=== PATIENT | female | born 1945 | race Caucasian/White ===

== ENCOUNTER → 2016-05-04 12:12 | Outpatient (CLI) | payer MEDICARE ==
[2015-03-01 10:06] VITALS: BMI 23.7
[~2016-05-04 12:12] MED LIST: ALLEGRA 60 MG T60 MG PO; ASPIRIN 81 MG E81 MG PO; ASPIRIN EC81 M1 PO; CARAFATE1 G/10 ML PO; CATAPRES0.1 MG PO; CLARITIN 10 MG10 MG PO; COLACE100 MG PO; FEXOFENADINE H180 MG PO; FLAGYL250 MG PO; KEFLEX500 MG PO; KLONOPIN0.5 MG PO; LASIX80 MG PO; LEVAQUIN250 MG PO; MELATONIN 3 MG1 TAB PO; MUCINEX600 MG PO; NEPHRO-VITE RX1 TAB PO; NORCO 5/325 TAB1 TA1 PO; NORVASC10 MG PO; NORVASC5 MG PO; PEPCID20 MG PO; PERCOCET 10/3251 TA1 PO; PRILOSEC20 MG PO; PROTONIX40 MG PO; REGLAN10 MG PO; RENVELA800 MG PO; SENNA8.6 MG PO; SENSIPAR30 MG PO; SILVADENE20 GM TP; TRANDATE300 MG PO; TYLENOL 325 MG325 MG OR; ZOLOFT100 MG PO; ZOLOFT50 MG PO; [UNRECOGNIZED DRUG - REMARK] EACH EYE
== END | disposition home or self-care (01) ==
LOC: D.NM 12:12
DX: R04.2 Hemoptysis (principal)

== ENCOUNTER 2016-07-05 07:36 | Emergency (ER) | payer MEDICARE ==
[2015-03-01 10:06] VITALS: BMI 23.7
[2016-07-05 08:14] LABS: BASOPHILS 0.1 % (0.0-2.0); EOSINOPHILS 0.4 % (0-7); HEMATOCRIT 35.7 % (36.0-48.0); HEMOGLOBIN 11.6 g/dL (12-16); IMMATURE GRANULOCYTES 0.2 % (0-5); LYMPHOCYTES 9.1 % (15-50); MCH 34.3 pg (26.0-34.0); MCHC 32.5 g/dL (31.0-37.0); MCV 105.6 fL (80.0-100.0); MEAN PLATELET VOLUME 10.4 fL (7.4-10.4); MONOCYTES 4.4 % (2-11); NEUTROPHILS 85.8 % (40-80); PLATELET COUNT 111 10x3/uL (130-400); RBC 3.38 10x6/uL (4.00-5.40); RDW 13.6 % (11.5-14.5); WBC 10.5 10x3/uL (4.8-10.8)
[2016-07-05 08:30] LABS: ALBUMIN 3.5 g/dL (3.4-5.0); ANION GAP 21.3 mmol/L (8-16); BILIRUBIN - TOTAL 0.45 mg/dL (0.2-1.3); CALCIUM 8.1 mg/dL (8.5-10.1); CARBON DIOXIDE 19.8 mmol/L (21.0-32.0); CREATININE - SERUM 10.5 mg/dL (0.6-1.3); POTASSIUM - SERUM 5.1 mmol/L (3.5-5.1)
[2016-07-05 08:46] LABS: C-REACTIVE PROTEIN 0.2 mg/dL (0.0-0.9)
[2016-07-05 09:10] LABS: APPEARANCE HAZY (CLEAR); COLOR YELLOW (YELLOW); LEUKOCYTE ESTERASE NEGATIVE (NEGATIVE); NITRITE NEGATIVE (NEGATIVE); SPECIFIC GRAVITY 1.005 (1.005-1.020)
[2016-07-05 09:11] LABS: BACTERIA FEW /hpf (NONE SEEN); BILIRUBIN NEGATIVE (NEGATIVE); GLUCOSE 100 mg/dL (NEGATIVE); KETONE NEGATIVE (NEGATIVE); MUCUS <1+ /lpf (NONE SEEN); PROTEIN 1+ mg/dL (NEGATIVE); RED CELLS - URINE 0-5 /hpf (0-5); UROBILINOGEN NORMAL (NORMAL); WHITE CELLS - URINE 0-5 /hpf (0-5)
== END 2016-07-05 09:33 | disposition home or self-care (01) ==
LOC: D.ER 07:36
PROVIDERS: Family Medicine
DX: M19.90 Unspecified osteoarthritis, unspecified site (principal); M54.10 Radiculopathy, site unspecified; N19 Unspecified kidney failure; I10 Essential (primary) hypertension

== ENCOUNTER → 2016-07-15 08:20 | Outpatient (CLI) | payer MEDICARE ==
[2015-03-01 10:06] VITALS: BMI 23.7
== END ==
LOC: D.MRI 08:20
DX: M51.34 Other intervertebral disc degeneration, thoracic region (principal); M51.36 Other intervertebral disc degeneration, lumbar region; M99.53 Intervertebral disc stenosis of neural canal of lumbar region; M51.26 Other intervertebral disc displacement, lumbar region; M54.42 Lumbago with sciatica, left side

== ENCOUNTER 2017-06-29 09:48 | Day surgery (SDC) | payer MEDICARE ==
[~2017-06-29] VITALS: Ht 162.6 cm; Wt 68.2 kg
--- NOTE | ~2017-06-29 | OP ---
PATIENT NAME: ALEX IRELAND MEDICAL RECORD: [id number] :47 LOCATION:D.OPS ADMISSION DATE: SURGEON: FESTUS SÁNCHEZ DO DATE OF OPERATION: 06/29/2017 PROCEDURE: EGD. INDICATIONS FOR PROCEDURE: History of Rayo's esophagus and gastric ulcers noted in August of 2014. SCOPE: Olympus video gastroscope. MEDICATIONS: Propofol 200 mg IV per anesthesia. ESTIMATED BLOOD LOSS: None. COMPLICATIONS: None. FINDINGS: Informed consent was given. The patient was made comfortable with the above medication. After reaching an adequate level of sedation by slow IV push, the patient was placed on her left side. The endoscope was then advanced under direct visualization through the mouth to the second portion of the duodenum. The upper, middle, and lower thirds of the esophagus appeared normal. At the GE junction, there was no significant evidence of reflux disease. There was no evidence of Rayo's esophagus. The endoscope was advanced beyond the GE junction into the stomach and retroflexed to view the cardia, where a small sliding hiatal hernia was present. The fundus and body of the stomach appeared normal. In the distal antrum and prepyloric region, there were few scattered erosions consistent with medication induced effect. There was a single polypoid future, which was inflamed and had an ulcerated tip which looked like the surrounding erosions with the additional fact that this has likely been prolapsed in and out of the pyloric channel and has become extended slightly. No biopsies were taken on today's examination due to the fact that the patient's white blood cell count is less than 2. The endoscope was advanced beyond the pylorus into the duodenum where the bulb and second portion of the duodenum appeared normal. The endoscope was then withdrawn from the patient. The patient tolerated the procedure well and there were no complications. IMPRESSION: 1. Small sliding hiatal hernia. 2. Antral erosions and inflammatory polypoid feature, which is felt to be benign, located in the prepyloric region. PLAN AND RECOMMENDATIONS: 1. Discharge home when recovery parameters are met. 2. Continue current diet. 3. Continue current medications including Protonix and Pepcid as already scheduled. 4. Add Carafate tablets 1 gm 1 p.o. b.i.d. times 30 days, from other medications by 2 hours. 5. Repeat upper endoscopy when the patient's white blood cell count is greater than 2 for reevaluation of the antral erosions and polypoid feature and biopsies as indicated. Of note, this polypoid site is inflamed and has an ulcerated tip, which could bleed. If the patient experiences melena or her hemoglobin decreases further, this should be considered as an etiology for those findings. OPERATIVE REPORT [id number] ALEX IRELAND TRANSINT:[id number] Voice Confirmation ID: [id number] DOCUMENT ID: [id number] FESTUS SÁNCHEZ DO at 1409 CC: [id number] DICTATION DATE: 06/29/17 1245 [employer] SPECIALIST: 06/29/17 1315 [facility] [address] [place] [address]
[2017-06-29] MEDS ORDERED: REGLAN5 MG PO (10:33)
[2017-06-29] MEDS ORDERED: CELEXA20 MG PO (10:34)
[2017-06-29] MEDS ORDERED: BACTRIM 400-801 TAB PO (10:34)
[2017-06-29] MEDS ORDERED: CYCLOBENZAPRINE10 MG PO (10:35)
[2017-06-29] MEDS ORDERED: PREDNISONE5 MG PO (10:35)
[2017-06-29] MEDS ORDERED: NORMODYNE / TR300 MG (10:35)
[2017-06-29] MEDS ORDERED: VALCYTE450 MG PO (10:36)
[2017-06-29] MEDS ORDERED: PROTONIX40 MG PO (10:36)
[2017-06-29 10:46] VITALS: Ht 162.6 cm; Wt 68.2 kg
[2017-06-29 11:35] LABS: HEMATOCRIT 32.4 % (36.0-48.0); HEMOGLOBIN 10.3 g/dL (12-16); MCH 34.1 pg (26.0-34.0); MCHC 31.8 g/dL (31.0-37.0); MCV 107.3 fL (80.0-100.0); MEAN PLATELET VOLUME 10.6 fL (7.4-10.4); RBC 3.02 10x6/uL (4.00-5.40); RDW 15.4 % (11.5-14.5)
[2017-06-29 11:41] LABS: PLATELET COUNT 86 10x3/uL (130-400); WBC 1.7 10x3/uL (4.8-10.8)
[2017-06-29 11:51] LABS: APTT 28.8 SECONDS (22.8-39.4); INR 1.03 (0.85-1.17); PROTIME 13.1 SECONDS (11.6-15.0)
[2017-06-29 11:58] LABS: ANION GAP 12.6 mmol/L (8-16); CALCIUM 9.5 mg/dL (8.5-10.1); CARBON DIOXIDE 25.2 mmol/L (21.0-32.0); POTASSIUM - SERUM 4.8 mmol/L (3.5-5.1)
[2017-06-29 13:01] LABS: EOSINOPHILS 2 % (0-7); LYMPHOCYTES 30 % (15-50); MONOCYTES 4 % (2-11); NEUTROPHILS 62 % (40-80); PLATELET ESTIMATE DECREASED
== END 2017-06-29 14:00 | disposition home or self-care (01) ==
LOC: D.OPS 09:48
PROVIDERS: Anesthesiology
DX: K44.9 Diaphragmatic hernia without obstruction or gangrene (principal); K25.9 Gastric ulcer, unspecified as acute or chronic, without hemorrhage or perforation; K31.7 Polyp of stomach and duodenum; Z01.812 Encounter for preprocedural laboratory examination

== ENCOUNTER → 2018-11-08 11:03 | Outpatient (CLI) | payer MEDICARE ==
[2017-06-29 10:46] VITALS: BMI 25.8
[~2018-11-08 11:03] MED LIST changes: +BACTRIM 400-801 TAB PO; +CELEXA20 MG PO; +CYCLOBENZAPRINE10 MG PO; +NORMODYNE / TR300 MG; +PREDNISONE5 MG PO; +REGLAN5 MG PO; +VALCYTE450 MG PO
[2018-11-08 11:57] LABS: BASOPHILS 0.3 % (0-2); EOSINOPHILS 0.5 % (0-7); HEMATOCRIT 42.4 % (36.0-48.0); HEMOGLOBIN 14.1 g/dL (12-16); IMMATURE GRANULOCYTES 0.5 % (0-5); LYMPHOCYTES 23.6 % (15-50); MCH 33.3 pg (26.0-34.0); MCHC 33.3 g/dL (31.0-37.0); MEAN PLATELET VOLUME 10.6 fL (7.4-10.4); MONOCYTES 8.2 % (2-11); NEUTROPHILS 66.9 % (40-80); PLATELET COUNT 107 10x3/uL (130-400); RBC 4.24 10x6/uL (4.00-5.40); RDW 13.4 % (11.5-14.5); WBC 7.6 10x3/uL (4.8-10.8)
== END | disposition home or self-care (01) ==
LOC: D.LABREF 11:03
PROVIDERS: ATTEND Legal Medicine
DX: D69.6 Thrombocytopenia, unspecified (principal)

== ENCOUNTER 2020-02-04 08:19 | Day surgery (SDC) | payer MEDICARE ==
[~2020-02-04] VITALS: Ht 162.6 cm; Wt 70.5 kg
[2020-02-04 08:47] LABS: HEMATOCRIT 37.9 % (36.0-48.0); HEMOGLOBIN 12.2 g/dL (12-16); MCH 29.5 pg (26.0-34.0); MCHC 32.2 g/dL (31.0-37.0); MCV 91.5 fL (80.0-100.0); MEAN PLATELET VOLUME 9.5 fL (7.4-10.4); PLATELET COUNT 87 10x3/uL (130-400); RBC 4.14 10x6/uL (4.00-5.40); RDW 15.2 % (11.5-14.5); WBC 4.7 10x3/uL (4.8-10.8)
[2020-02-04 09:11] LABS: ANION GAP 11.5 mmol/L (8-16); CALCIUM 9.8 mg/dL (8.5-10.1); CARBON DIOXIDE 26.4 mmol/L (21.0-32.0); CREATININE - SERUM 1.1 mg/dL (0.6-1.3); POTASSIUM - SERUM 3.9 mmol/L (3.5-5.1)
[2020-02-04] MEDS ORDERED: CARAFATE1 G PO ×2 (09:20)
[2020-02-04] MEDS ORDERED: ZONEGRAN100 MG PO (09:25)
[2020-02-04] MEDS ORDERED: DIFLUCAN200 MG PO (09:25)
[2020-02-04] MEDS ORDERED: ZOLOFT50 MG PO (09:26)
[2020-02-04] MEDS ORDERED: MAG-OXIDE400 MG PO (09:26)
[2020-02-04 09:27] VITALS: BP 164/78; Ht 162.6 cm; Wt 70.5 kg
[2020-02-04 10:49] LABS: PLATELET ESTIMATE DECREASED
--- NOTE | 2020-02-04 11:46 | NUR ---
1035 IV DC'D. CATHETER TIP INTACT. NO BLEEDING AT SITE AFTER HOLDING PRESSURE. BANDAID APPLIED. REVIEWED DISCHARGE INSTRUCTIONS WITH PT AND HER WHO VOICE UNDERSTANDING OF INSTRUCTIONS. 1040 PT IS DRESSED AND WAITING ON DR SÁNCHEZ TO DISCUSS HER TEST.
--- NOTE | 2020-02-04 11:50 | NUR ---
[address] SÁNCHEZ COMPLETE AND PT READY FOR DISCHARGE HOME
--- NOTE | 2020-02-06 10:13 | OP ---
PATIENT NAME: ALEX IRELAND MEDICAL RECORD: [id number] :47 LOCATION:D.OPS ADMISSION DATE: SURGEON: FESTUS SÁNCHEZ DO DATE OF OPERATION: 02/04/2020 PROCEDURE: EGD with biopsies. INDICATIONS FOR PROCEDURE: History of Rayo's esophagus, dysphagia, nausea, gas and bloating. SCOPE: Olympus video gastroscope. MEDICATIONS: Propofol 200 mg IV per anesthesia. ESTIMATED BLOOD LOSS: Minimal. COMPLICATIONS: None. FINDINGS: Informed consent was given. The patient was made comfortable with the above medication. After reaching an adequate level of sedation by slow IV push, the patient was placed on her left side. The endoscope was advanced under direct visualization through the mouth to the second portion of the duodenum with ease. The esophagus appeared normal down to the GE junction. At the GE junction, there was evidence of LA class A reflux-induced esophagitis. There were no obvious findings consistent with Rayo's esophagus, but biopsies were taken with cold forceps at the squamocolumnar junction regarding the history of biopsies showing Rayo's mucosa. The endoscope was advanced beyond the GE junction into the stomach and retroflexed to view the cardia, where a small sliding hiatal hernia was present. The fundus appeared normal. Throughout the body as well as the antrum and prepyloric regions, there was some erythema and granularity and few scattered erosions, which have been present in the past as well. Cold forcep biopsies were taken from the antrum and incisura to submit for histopathology and to rule out the presence of H. pylori. The endoscope was advanced beyond the pylorus into the duodenum, which appeared normal to the second portion. Cold forcep biopsies were taken in the duodenum regarding the patient's reported diarrhea. The endoscope was withdrawn from the patient. The patient tolerated the procedure well and there were no complications. IMPRESSION: 1. LA class A reflux-induced esophagitis. 2. Small sliding hiatal hernia. 3. Gastritis. PLAN AND RECOMMENDATIONS: 1. Discharge home when recovery parameters are met. 2. Follow up biopsy specimen results. 3. GERD diet and reflux precautions. 4. Continue current medications including Carafate as needed for reflux and heartburn symptoms. 5. We will arrange a colonoscopy based on the patient's symptoms for evaluation of her diarrhea, which is her predominant concern currently. TRANSINT:[id number] Voice Confirmation ID: [id number] DOCUMENT ID: [id number] OPERATIVE REPORT [id number] ALEX IRELAND NATHAN A DO at 1013 CC: [id number] DICTATION DATE: 02/04/20 0958 [employer] INSTRUCTOR: 02/04/[address] [facility] 02/04/20 [place] [id number] [place] [id number]
== END 2020-02-04 10:55 | disposition home or self-care (01) ==
LOC: D.OPS 08:19
PROVIDERS: Anesthesiology; ATTEND Internal Medicine Gastroenterology
DX: K22.719 Barrett's esophagus with dysplasia, unspecified (principal); R11.0 Nausea; R14.0 Abdominal distension (gaseous); K21.00 Gastro-esophageal reflux disease with esophagitis, without bleeding; K44.9 Diaphragmatic hernia without obstruction or gangrene; K29.70 Gastritis, unspecified, without bleeding; R19.4 Change in bowel habit; R19.7 Diarrhea, unspecified; Z86.010 Personal history of colon polyps